=== PATIENT | female | born 1955 | race Caucasian/White ===

== ENCOUNTER 2023-09-23 13:01 | Emergency (ER) | payer BC, SELFPAY ==
[2023-09-23 13:04] VITALS: BP 161/94
[2023-09-23 13:34] VITALS: BMI 43.3
[2023-09-23 13:50] LABS: Glucose - Point of Care 130 mg/dl (70-99)
[2023-09-23 13:56] LABS: % Basophils 0.4 % (0-2); % Eosinophils 1.1 % (0-6); % Immature Granulocytes 0.4 % (0-0.5); % Lymphocytes 18.7 % (20.5-51.1); % Monocytes 8.1 % (1.7-9.3); % Neutrophils 71.3 % (42.2-75.2); Absolute Eosinophils 0.1 10^3/uL (0-0.7); Absolute Lymphocytes 1.5 10^3/uL (1.2-3.4); Absolute Monocytes 0.6 10^3/uL (0.1-0.6); Absolute Neutrophils 5.6 10^3/uL (1.4-6.5); Hematocrit 37.9 % (37.0-47.0); Hemoglobin 13.3 g/dL (12.0-16.0); Mean Corp Hgb Conc. 35.1 g/dL (33.0-37.0); Mean Corpuscular Hgb 28.8 pg (27.0-31.0); Mean Platelet Volume 10.5 fL (7.4-10.4); Nucleated Red Blood Cells % 0 %; Platelet Count 213 10^3/uL (130-400); Red Blood Cell Count 4.62 10^6/uL (4.20-5.40); White Blood Cell Count 7.9 10^3/uL (4.8-10.8)
--- NOTE | 2023-09-23 13:57 | ED.CVA ---
History of Present Illness
General
Chief Complaint: CVA/TIA Symptoms
Source: patient and family
Exam Limitations: none
Time Seen by Provider: 09/23/23 13:37
Onset of Stroke Symptoms
Onset of symptoms known: Yes
Date of onset of symptoms: 09/21/23
Travel History
Have you had any contact with someone who has COVID-19?: No
Do you have any symptoms of coronavirus? Fever > 100 degrees, chills, cough, shortness of breath, sore throat, loss of taste or smell, muscle aches, or headache?: No
History of Present Illness
History of Present Illness:
67-year-old female with incoordination of the right hand and some cognitive issues that started 2 days ago. Symptoms are mild in nature. No trouble ambulating. Presents at the request of family
Past History
Past History
ED Past Medical History: HTN, Hypercholesterolemia and Valvular disease
ED Past Surgical History: Cardiac (valve)
Review of Systems
Review of Systems
All Other Systems: Not applicable
Constitutional: Denies fever
Respiratory: Reports no symptoms
Cardiac: Reports no symptoms
Phy Exam
Physical Exam
Physical Exam:
GENERAL: Alert and oriented in no apparent distress
EYE: Orbits normal.
NECK: Supple, no significant adenopathy.
ENT: Pharynx without erythema
CARDIAC: Regular rate and rhythm with mechanical valve murmur
LUNGS: Clear breath sounds,normal
ABDOMEN: Soft, without focal tenderness or distention
NEUROLOGICAL: Alert and oriented , speech normal. Cranial nerves II through XII intact. Incoordination of the right hand with slight right arm drift. Poor finger-nose on the right. Some neglect on the right
SKIN: Warm and dry, no rash or lesion, no discoloration, skin intact.
MUSCULOSKELETAL: No edema,no deformity.Good color
PSYCH: Normal and appropriate interaction.
Course
Orders/Labs/Results
Orders:
Orders
09/23/23 13:10
Electrocardiogram (*1) Urgent
Reason for Study: Other
Other Reason for Exam: Possible Stroke
Bedside Glucose- Treatment ONCE
Cardiac Monitoring- Treatment ONCE
EKG- Treatment ONCE
IV Insert/Care/Rem.- Treatment PRN
Vital Signs As Directed
Frequency: Other
Weight As Directed
Frequency: Once
Comment: ZERO STRETCHER SCALE FOR ACCURATE WEIGHT
O2 Therapy [RESP] Urgent
Titrate/Wean O2 to maintain O2 sat greater than (%): 93
Special Instructions: MAINTAIN CONTINUOUS O2 SATS > OR = 93%
09/23/23 13:12
CT Head W/o Iv Contrast Urgent
Comment:
Reason For Exam: R sided sx's/
09/23/23 13:45
Complete Blood Count/With Diff Urgent
Comprehensive Metabolic Panel Urgent
Magnesium Urgent
Comment: ADD ON
PTT Urgent
Prothrombin Time Urgent
Troponin I Urgent
09/23/23 14:22
Dexamethasone Sod Phosphate [Decadron] 6 mg IV NOW STA
09/23/23 15:06
Levetiracetam Injectable [Keppra] 1,000 mg IV NOW STA
09/23/23 15:34
Lorazepam [Ativan] 2 mg .ROUTE .STK-MED ONE
09/23/23 15:35
Lorazepam [Ativan] 0.5 mg IV NOW STA
09/23/23 15:43
Lorazepam [Ativan] 0.5 mg IV NOW STA
09/23/23 15:49
Add On- LAB Urgent
Tests Added?: magnesium
Abnormal Lab Results
09/23/23 09/23/23
13:45 13:49
MPV 10.5 H fL
(7.4-10.4)
Lymphocytes % 18.7 L %
(20.5-51.1)
PT 23.6 H Sec
(11.4-14.6)
APTT 38.9 H Sec
(23.4-35.0)
Glucose 121 H mg/dl
(70-99)
POC Glucose 130 H mg/dl
(70-99)
09/23/23 13:45
09/23/23 13:45
Vital Signs
Initial and Last Documented VS:
Initial Vital Signs
Temp Pulse Resp BP Pulse Ox
97.6 F 98 16 161/94 98
09/23/23 13:04 09/23/23 13:04 09/23/23 13:04 09/23/23 13:04 09/23/23 13:04
Last Documented Vital Signs
Temp Pulse Resp BP Pulse Ox
97.6 F 95 22 131/79 96
09/23/23 13:04 09/23/23 15:45 09/23/23 15:45 09/23/23 15:00 09/23/23 15:45
*Critical Care Note
Total Time (30-74mins, 75-104mins- exclusive of procedures): 45
Update Note
Update Note:
1500... Patient accepted at [facility]. Gave a dose of Decadron. Discussed with neurology at [facility]. Was plus minus on Keppra initially although I was just called into the room for some twitching in her right
leg. We will cover with a gram of Keppra.
1550.... Patient's twitching have progressed to involve her chest wall. Appears bilateral. No arm twitching no facial twitching fully alert stable vital signs stable heart rate. Bilateral. Not convinced it is seizure given the bilateral nature.
Never heard of this side on Decadron. Discussed the patient and family. Elected to give Ativan as a trial
1715... Patient doing well. Stable. No further twitching. updated
ED Attending Note
-
Portions of this chart may have been created with voice recognition software.� Occasional wrong word or��sound alike� substitutions may have occurred due to the inherent limitations of voice recognition software.
Discharge Plan
Departure
[facility] Disposition: [facility]
Date of Disposition: 09/23/23
Time of Disposition: 15:09
Patient with high blood pressure during this ER visit?: Yes
Discharge Problem:
New onset left parietal mass
Prescriptions:
No Action
metoprolol succinate 100 mg Tablet Extended Release 24 Hr
100 mg PO HS
omeprazole 40 mg Capsule,Delayed Release(Dr/Ec)
40 mg PO Q48H@0800
levothyroxine 125 mcg Tablet
125 mcg PO HS
warfarin 5 mg Tablet
0 mg PO .SEE BELOW
Patient Comments:
09/23/2023, pt. does not know how she currently takes her Warfarin; pt. states that she measures her own INR and adjusts her Warfarin accordingly.
fluoxetine 10 mg Capsule
10 mg PO HS
hydrochlorothiazide 12.5 mg Tablet
12.5 mg PO DAILY
pitavastatin calcium 1 mg Tablet
1 mg PO HS
Referrals:
Dane Cordova DO [Family Provider] -
Hospital Transfer
Other hospital: [facility]
I certify that the patient requires transfer: Yes
Discussed case with accepting physician: Felix
Reason for transfer: higher level of care
Interventions
Interventions:
*Risk Screen - Suicide Last Done: 09/23/23 13:04
*General Assessment Last Done: 09/23/23 13:04
*Neglect/Abuse Screening Last Done: 09/23/23 13:04
ED- Fall Risk Assessment Last Done: 09/23/23 13:54
ED- Pulmonary Assessment Last Done: 09/23/23 13:54
ED- Neurological Assessment Last Done: 09/23/23 13:50
ED- Cardiac Assessment Last Done: 09/23/23 13:54
ED Swallowing Screen Last Done: 09/23/23 14:35
Discharge Date and Time
Print Language: TUVALUAN
[2023-09-23 14:00] VITALS: BP 156/91
[2023-09-23 14:06] LABS: INR 2.11; PT 23.6 Sec (11.4-14.6)
[2023-09-23 14:07] LABS: APTT 38.9 Sec (23.4-35.0)
[2023-09-23 14:08] LABS: ALT (SGPT) 30 U/L (0-35); AST (SGOT) 31 U/L (14-36); Albumin 4.5 g/dl (3.5-5.0); Alkaline Phosphatase 80 U/L (38-126); Blood Urea Nitrogen 17 mg/dl (7-17); Calcium 9.6 mg/dl (8.4-10.2); Carbon Dioxide 30 mmol/L (22-30); Chloride 104 mmol/L (98-107); Estimated Creatinine Clearance 80 ml/min; Glucose 121 mg/dl (70-99); Potassium 3.7 mmol/L (3.5-5.1); Sodium 142 mmol/L (135-145); Total Bilirubin 0.9 mg/dl (0.2-1.3); Total Protein 7.3 g/dl (6.3-8.2); eGFR > 60.00
[2023-09-23 14:20] LABS: Troponin I < 0.012 ng/ml
[2023-09-23] MEDS: DECADRON 6 MG IV (14:40)
[2023-09-23 15:00] VITALS: BP 131/79
--- NOTE | 2023-09-23 15:05 | EDRN ---
windshield repair technician in room w/ pt and pt started 'twitching' in her chest and torso area and her R leg was moving up and down. Dr. Musa called and now in room w/ pt. When this RN entered twitching had stopped.
[2023-09-23] MEDS: KEPPRA 1000 MG IV (15:10)
--- NOTE | 2023-09-23 15:17 | EDRN ---
Addendum entered by Kaylene Peterson, RN 09/23/23 15:18:
This episode was at 15:10 during administration of Keppra 1 gm IV as ordered by Dr. Musa.
Original Note:
At this time pt stated she was having the same sensation and her torso was twitching in an involuntary way as seen by this RN lasting only a couple of seconds.
--- NOTE | 2023-09-23 15:30 | EDRN ---
Pt is almost continuously having 'twitching' movement visually notable in her chest, no other twitching movement noted. This RN called Dr. Musa and he is now in room w/pt and her daughter.
--- NOTE | 2023-09-23 15:34 | EDRN ---
Attempting to call report at this time.
[2023-09-23] MEDS: ATIVAN 0.5 MG IV ×2 (15:35→15:43)
--- NOTE | 2023-09-23 15:37 | EDRN ---
Report called to studio operations engineer in charge at [facility] emergency department at this time. No name given by RN report given to.
--- NOTE | 2023-09-23 15:38 | EDRN ---
Pt was ordered ativan 0.5 mg IV for twitching that has continued at this time.
--- NOTE | 2023-09-23 15:42 | EDRN ---
Dr. Musa in room w/ pt and pt still twitching so another 0.5 mg of ativan ordered and administered.
--- NOTE | 2023-09-23 15:44 | EDRN ---
This nurse called [facility] RN back as charge nurse Brigitte Scherer RN had said to me it was enough info before this RN was able to tell her meds administered to pt. THis RN informed Brigitte Scherer RN that pt had received 6 mg of Decadron IV, 1 Gm of keppra IV for
seizure activity then 2 doses of 0.5 mg of ativan IV.
--- NOTE | 2023-09-23 15:46 | EDRN ---
Pt has been accepted by Dr. Washington at [facility] accepted this pt into his care at [facility], pt to go to [facility] ER, report called to insulation cupola charger in ER Brigitte Scherer, Pt scheduled to leave from here to [facility] at 17:30 via [facility].
--- NOTE | 2023-09-23 15:48 | EDRN ---
Report called to [phone] tel # for ER.
[2023-09-23 16:00] VITALS: BP 123/57
[2023-09-23 16:27] LABS: Magnesium 1.9 mg/dl (1.6-2.3)
--- NOTE | 2023-09-23 16:33 | EDRN ---
Pt continues to have chest and upper abdominal 'twitching' intermittently. Dr. Musa just in to see pt and states that we will continue to watch pt at this time, ? if seizure vs muscle spasms at this time. Purewyck placed as pt maybe having seizures
for pt to void.
[2023-09-23 17:00] VITALS: BP 118/67
--- NOTE | 2023-09-23 17:26 | EDRN ---
Muscle twitching in her chest and upper abd has decreased not as frequent per pt and daughter. pt so far has feeling of needing to void but unable to void. Pt has weakness and inability to move R leg that well, asked for pt to bend knee w/ heel on
stretcher, pt unable to coordinate this w/ R leg though L leg no problem.
--- NOTE | 2023-09-23 17:56 | EDRN ---
Addendum entered by Kaylene Peterson RN 09/23/23 17:59:
Commode had been brought to room. Pt refused to use commode and insisted on walking to BR to void.
Original Note:
Pt was unable to void w/ Purewyck. Pt was ambulated to BR w/ [facility] PCT at this time and ambulated to BR w/out difficulty.
--- NOTE | 2023-09-23 18:00 | EDRN ---
[facility] noted at this time as delayed an hour w/ new arrival time at 18:30.
[2023-09-23 18:14] VITALS: BP 124/87
--- NOTE | 2023-09-23 18:42 | EDRN ---
[facility] here to take pt at this time.
== END 2023-09-23 18:55 | disposition short-term general hospital (02) ==
LOC: EMR 13:01
PROVIDERS: Emergency Medicine; EMERGENCY PHYSICIAN Emergency Medicine; FAMILY PHYSICIAN Family Medicine
DX: G93.9 Disorder of brain, unspecified (principal); R27.9 Unspecified lack of coordination; I10 Essential (primary) hypertension; E78.00 Pure hypercholesterolemia, unspecified; I38 Endocarditis, valve unspecified
CPT/HCPCS: 99284; 96374; 96375; 96376; 70450; 80053; 82962; 83735; 84484; 85025; 85610; 85730; 93005